=== PATIENT | male | born 1975 | race Hispanic/Latino ===

== ENCOUNTER 2016-06-05 10:00 | Emergency (ER) | payer MEDICAID ==
[2016-06-05 10:01] VITALS: BMI 22.4
[2016-06-05 10:06] VITALS: BP 130/84; PULSE 100; RESP 16; TEMP 97.6
[2016-06-05 10:15] VITALS: O2SAT 98
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
--- NOTE | 2016-06-05 12:54 | RAD ---
PROCEDURE: Right Wrist Radiographs. HISTORY: wrist injury COMPARISON: None. FINDINGS: BONES: Impaction fracture distal radius with angulation. Ulnar styloid fracture. JOINTS: Normal. No dislocation. SOFT TISSUES: Normal. OTHER FINDINGS: None. IMPRESSION: Impaction fracture distal radius with angulation. Ulnar styloid fracture.
--- NOTE | 2016-06-05 12:55 | RAD ---
PROCEDURE: Left Hand Radiographs. HISTORY: injury COMPARISON: None. FINDINGS: BONES: Impaction fracture distal radius with angulation. Ulnar styloid fracture. JOINTS: Normal. No osteoarthritic changes. SOFT TISSUES: Normal. OTHER FINDINGS: None. IMPRESSION: Impaction fracture distal radius with angulation. Ulnar styloid fracture.
--- NOTE | 2016-06-05 12:55 | RAD ---
HISTORY: injury COMPARISON: No prior FINDINGS: BONES: Impaction fracture distal radius with angulation. Ulnar styloid fracture. JOINTS: Normal. No osteoarthritis. SOFT TISSUE: Normal. OTHER FINDINGS: None . IMPRESSION: Impaction fracture distal radius with angulation. Ulnar styloid fracture.
--- NOTE | 2016-06-05 14:45 | CT ---
PROCEDURE: HISTORY: EVALUATE WRIST FX COMPARISON: TECHNIQUE: FINDINGS: There is a comminuted impaction fracture of the distal radius with both obliques, transverse and vertical fracture lines extending to distal radial articular surface with narrowing of the radio scaphoid joint. There is an ulnar styloid fracture. The carpus is in good anatomic alignment. There is diffuse soft tissue swelling and carpal synovitis. IMPRESSION: Impaction fracture of the distal radius with extensive comminution as discussed above.
== END 2016-06-05 14:34 | disposition home or self-care (01) ==
LOC: H.ER 10:00
DX: S69.92XA Unspecified injury of left wrist, hand and finger(s), initial encounter (principal); W19.XXXA Unspecified fall, initial encounter; Y92.89 Other specified places as the place of occurrence of the external cause; F41.9 Anxiety disorder, unspecified

== ENCOUNTER 2016-06-07 05:48 | Day surgery (SDC) | payer MEDICAID ==
[2016-06-07 05:48] VITALS: BMI 22.4
[2016-06-07] MEDS ORDERED: Albuterol-Ipratrop 3 mg / 0.5 (3 ml) UD INH STA (06:20)
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
[2016-06-07 06:56] LABS: BASO # 0.1 K/uL (0.0-0.2); BASO % 0.7 % (0.0-2.0); EOS # 0.2 K/uL (0.0-0.7); HEMATOCRIT 44.2 % (35.0-51.0); LYMPH # 1.6 K/uL (1.0-4.3); LYMPH % 19.9 % (20.0-40.0); MEAN CELL VOLUME 94.3 fl (80.0-94.0); MEAN CORPUSCULAR HEMOGLOBIN 32.4 pg (27.0-31.0); MEAN CORPUSCULAR HGB CONC 34.4 g/dL (33.0-37.0); MEAN PLATELET VOLUME 7.7 fl (7.2-11.7); MONO # 0.8 K/uL (0.0-0.8); MONO % 10.5 % (0.0-10.0); NEUT # 5.2 K/uL (1.8-7.0); NEUT % 65.9 % (50.0-75.0); NRBC % 0.1 % (0.0-0.0); RED CELL DISTRIBUTION WIDTH 13.3 % (11.5-14.5); WHITE BLOOD COUNT 7.9 K/uL (4.8-10.8)
--- NOTE | 2016-06-07 07:02 | ED PDOC ---
- ECG O2 Sat by Pulse Oximetry: 96 Medical Decision Making Medical Decision Makin:00 Patient signed out to me by Dr. Voss. Pending labs and re-eval Disposition - Clinical Impression Clinical Impression: Arm fracture, left - Disposition Condition: STABLE
[2016-06-07 07:05] LABS: BLOOD UREA NITROGEN 10 mg/dl (9-20); CALCIUM 9.6 mg/dL (8.4-10.2); CARBON DIOXIDE 28 mmol/L (22-30); CHLORIDE 106 mmol/L (98-107); GFR AFRICAN-AMERICAN > 60; GLUCOSE,RANDOM 91 mg/dL (75-110); POTASSIUM 4.1 MMOL/L (3.6-5.0); SODIUM 146 mmol/l (132-148)
[2016-06-07 08:14] LABS: PARTIAL THROMBOPLASTIN TIME 23.9 SECONDS (23.3-32.5)
--- NOTE | 2016-06-07 09:49 | RAD ---
HISTORY: r/o PNA COMPARISON: No prior. TECHNIQUE: Chest PA and lateral FINDINGS: LUNGS: No active pulmonary disease. PLEURA: No significant pleural effusion identified. No pneumothorax apparent. CARDIOVASCULAR: Normal. OSSEOUS STRUCTURES: No significant abnormalities. VISUALIZED UPPER ABDOMEN: Normal. OTHER FINDINGS: None. IMPRESSION: No active disease.
[2016-06-07] MEDS ORDERED: Lidocaine Hydrochloride 5 ML INJ ONE (10:21)
[2016-06-07] MEDS ORDERED: Propofol 10 mg/ml Inj (20 ML) ONE (10:21)
[2016-06-07] MEDS ORDERED: Midazolam 2 MG/2 ML VIAL ONE (10:21)
--- NOTE | 2016-06-07 10:23 | CARD ---
APPROVED REPORT EKG Measurement Heart [id number] <Conclusion> Normal sinus rhythm with sinus arrhythmia Normal ECG
[2016-06-07] MEDS ORDERED: Lactated Ringer's 1,000 ML IV ONE (10:50)
[2016-06-07] MEDS ORDERED: Lidocaine 2% Jelly (5 ml) TOP ONE (11:25)
[2016-06-07] MEDS ORDERED: HYDROmorphone 0.5 mg/0.5 ml ISec IVP PRN ×2 (12:50→13:32)
[2016-06-07] MEDS ORDERED: HYDROmorphone 0.5 mg/0.5 ml ISec ONE ×2 (12:51→13:25)
[2016-06-07] MEDS ORDERED: Bupivacaine HCl 0.25% PF (30 ml) Inj ONE (12:55)
[2016-06-07] MEDS ORDERED: Bupivacaine HCl 0.5% PF (30 ml) Inj ONE (12:56)
[2016-06-07] MEDS ORDERED: Lactated Ringer's 1,000 ML IV SCH (13:32)
[2016-06-07] MEDS ORDERED: Oxycodone/Acetaminophen 5/325 mg Tab PO PRN (13:41)
--- NOTE | 2016-06-07 13:41 | PCM.ANESB4 ---
Infraclavicular Block - Femoral Nerve Block Date of Procedure: 06/07/16 Anesthesiologist: Dr. Alonzo Pre-Procedure Diagnosis: S/P ORIF Left Wrist fracture Post-Procedure Diagnosis: S/P ORIF Left Wrist fracture Procedure Performed: Brachial Plexus at the Infraclavicular area Left - Procedure Infraclavicular Block: The patient was in recovery room with standard monitors. The procedure was explained to the patient that it is for the post-operative pain management. Consent was obtained after a thorough discussion with the patient regarding the benefits and possible complications of local anesthetic block of the brachial plexus at the infraclavicular area. Time-out was held with the nurse to confirm the correct side and the appropriate block. While with oxygen by nasal cannula and administering some dilaudid to lessen his pain, patient's head was gently rotated away from the operative left side and the area medial to the coracoid process and inferior to the clavicle was carefully palpated. The ultrasound transducer was then applied to the skin in the transverse plane and the brachial plexus was visualized surrounding the axillary artery and deep to the pectoralis major and minor muscles. After thorough identification, this area was prepped with Chloraprep solution and 1 % Lidocaine was injected subcutaneously for topical anesthesia. At this point, a #21 gauge Stimuplex 4-inch needle was inserted cephalad to the ultrasound transducer and inferior to the clavicle in-plane towards the posterior aspect of the axillary artery. Needle advancement was performed carefully under ultrasound visualization. After repeated negative aspiration, 5cc of 0.35% bupivacaine was injected and this was followed with 25cc of 0.35% bupivacaine. Under ultrasound guidance the local anesthetics were observed surrounding the cords of the brachial plexus. The needle was removed intact and sterile dressing was applied. The patient had stable vital signs, was conscious and in no apparent distress. The patient tolerated the infraclavicular block of the brachial plexus well with stable vital signs.
--- NOTE | 2016-06-07 14:05 | PCM.SURG1 ---
Surgeon's Initial Post Op Note - Surgeon's Notes Surgeon: Dr. Daron Sherman Electronics Tech: Beatriz Campbell PA-C Type of Anesthesia: General Endo Anesthesia Administered By: Dr. Alonzo Pre-Operative Diagnosis: Displaced Left Intraarticular 4 Part Distal Radius Fracture Operative Findings: see operative note Post-Operative Diagnosis: same Operation Performed: Open Reduction Internal Fixation of Left Displaced Intraarticular 4 Part Distal Radius Fracture with a Synthes Volar Locking Plate Specimen/Specimens Removed: none Estimated Blood Loss: EBL {In ML}: 10 Drains Used: No Drains Post-Op Condition: Good Date of Surgery/Procedure: 06/07/16 Time of Surgery/Procedure: 11:00
[2016-06-07 14:28] VITALS: RESP 18
--- NOTE | 2016-06-07 14:30 | RAD ---
PROCEDURE: Left Wrist Radiographs. Three views of the left wrist performed through a fiberglass cast which obscures fine soft tissue and bone detail. . HISTORY: post op left ORIF of dustal radius fx COMPARISON: Comparison wrist 06/05/2016 FINDINGS: BONES: Status post ORIF comminuted intra-articular fracture distal left radius. A sideplate has been attached to the volar aspect of the distal radius attached by multiple threaded screws. Satisfactory alignment. JOINTS: Normal. No dislocation. SOFT TISSUES: Normal. OTHER FINDINGS: None. IMPRESSION: Limited study due to overlying fiberglass cast. Status post ORIF comminuted intra-articular fracture distal left radius. A sideplate has been attached to the volar aspect of the distal radius attached by multiple threaded screws. Satisfactory alignment.
[2016-06-07 14:35] VITALS: TEMP 98
--- NOTE | 2016-06-07 15:04 | OP ---
PROCEDURE DATE: 06/07/2016 SURGEON: Daron Sherman MD. PROJECT ENGINEERING DIRECTOR: LENA Villaseñor. PREOPERATIVE DIAGNOSIS: Displaced left intraarticular distal radius fracture, greater than 3 part. POSTOPERATIVE DIAGNOSIS: Displaced left intraarticular distal radius fracture, greater than 3 part. PROCEDURE: Open reduction internal fixation, left distal radius fracture using a Synthes volar locking plate. ANESTHESIA: Regional and supplemental intravenous sedation. DRAINS: None. OPERATIVE FINDINGS: displaced unstable 4 part fracture with intraarticular extension. SPECIMENS: None. DISPOSITION: Stable to recovery room. INDICATIONS: This is a 41-year-old right hand dominant male who presents to the Emergency Room on today's visit. The patient had sustained an injury to his wrist and was diagnosed with a displaced distal radius fracture. I evaluated the patient and, due to the instability of the fracture, I recommended surgery. The patient was taken to the operating room the same day for open reduction and internal fixation procedure. Risks of surgery were explained. The risks include, but not limited to, bleeding, infection; tendon, nerve or vessel injury; instability, chronic pain, potential need for additional surgery in the future. The patient understood the above risks and elected to proceed. Informed consent was obtained. DESCRIPTION OF PROCEDURE: The patient was taken to the operating room and placed supine on the operating room table. After adequate regional anesthesia and prophylactic antibiotics were given, a well-padded nonsterile tourniquet was placed on the patient's left upper extremity. The left upper extremity was then prepped and draped in standard surgical fashion. The proposed incision was marked out with a sterile marking pen. This was a longitudinal incision over the FCR tendon and then goes radially as it crosses the proximal wrist flexion crease. An Esmarch bandage was used to exsanguinate the limb and the tourniquet was inflated to 250 mmHg. The Esmarch bandage was removed. The incision was made through the skin only. All superficial veins were cauterized. Careful dissection was carried down to the flexor carpi radialis sheath which was incised on the radial most border. The FCR tendon was then retracted ulnarly and the floor of the FCR sheath was then incised as well. The flexor pollicis longus was retracted ulnarly and any small branches of the radial artery were cauterized. The pronator quadratus was reflected in an L- shaped fashion. The base of the pronator quadratus flap was on the ulnar side. The fracture was then visualized. With a combination of curette, rongeur and all early callus was removed. A bone tamp was entered into the fracture site and the articular surface was elevated and this impacted with light hammer blows. The volar fracture fragment was then reduced by a combination of longitudinal traction and digital pressure. A Synthes volar plate was placed on the volar aspect of the distal radius and was temporarily transfixed with Hermelinda wires. Image intensification revealed an anatomic reduction of the distal radius and excellent placement of the plate. In a sequential fashion, the proximal 3.5 mm screws were placed in the plate in a standard AO fashion. Next, the Hermelinda wires were removed. Distal locking pegs were then placed in a standard fashion using partially threaded screws. Rigid fixation was obtained. The image intensification revealed excellent reduction of the articular surface. The wrist and forearm were taken through a range of motion and full rotation was obtainable and the distal radioulnar joint was stable. The wound was irrigated with a copious amount of normal saline. The pronator quadratus was repaired back to its insertion on the radius with 4-0 Vicryl suture. The skin was then closed with 4-0 nylon interrupted sutures. Sterile dressing was placed consisting of fluffs, 4 x 4 and a volar wrist splint. The patient tolerated the procedure well and was brought to the recovery room awake, alert and in excellent condition. Beatriz Mcgee is a certified physician exceptional children teacher assistant who helped me throughout the entirety of the case. Her assistance was needed for proper patient positioning, protecting of neurovascular bundles, retraction and reduction of the fracture. Daron Sherman M.D. cc: [id number] TT: 06/07/2016 15:03:30 isidro BURRIS
[2016-06-07 17:35] VITALS: BP 129/79; PULSE 80; O2SAT 99
== END 2016-06-07 16:00 | disposition home or self-care (01) ==
LOC: H.ER 05:48 → H.SDS 07:02 → H.ERHOLD 07:11 → H.SDS 16:00
PROVIDERS: ATTEND Orthopaedic Surgery
DX: S52.572A Other intraarticular fracture of lower end of left radius, initial encounter for closed fracture (principal); X58.XXXA Exposure to other specified factors, initial encounter

== ENCOUNTER 2016-06-29 17:20 | Inpatient (IN) | payer MEDICAID ==
[2016-06-29 17:20] VITALS: BMI 22.4
--- NOTE | 2016-06-29 19:45 | ED PDOC ---
HPI: Psych/Substance Abuse Time Seen by Provider: 06/29/16 18:19 Chief Complaint (Nursing): Psychiatric Evaluation Chief Complaint (Provider): Suicidal Ideation History Per: Patient History/Exam Limitations: no limitations Onset/Duration Of Symptoms: Days (ongoing for 1 week) Current Symptoms Are (Timing): Still Present Modifying Factor(s): Alcohol, Marijuana Severity: Moderate Associated Symptoms: Depression, Suicidal Thoughts, Suicidal Plan Additional Complaint(s): Faraz Fiore is a 41 year old male, with a past medical history of depression and anxiety, who presents to the emergency department for the evaluation of suicidal ideation, that has been ongoing for 1 week. Patient states that he has been noncompliant with his Wellbutrin for the past 2 days and is currently feeling depressed with thoughts of cutting his wrists and neck. Patient has not made an attempt at suicide, but currently has a plan to do so. Modifying factors are inclusive of alcohol and smoking marijuana, which the patient admits to abusing. PMD: Dameon Healy Past Medical History Reviewed: Historical Data, Nursing Documentation, Vital Signs Vital Signs: Last Vital Signs Temp 98.8 F 06/29/16 17:28 Pulse 118 H 06/29/16 17:28 Resp 20 06/29/16 17:28 BP 126/76 06/29/16 17:28 Pulse Ox 100 06/29/16 17:28 - Medical History PMH: Anxiety, Depression, Hepatitis (C), Chronic Kidney Disease, Seizures Denies: Diabetes, HIV, HTN, Sexually Transmitted Disease - Surgical History Surgical History: No Surg Hx - Family History Family History: States: No Known Family Hx - Social History Current smoker - smoking cessation education provided: Yes Alcohol: Occasional Drugs: Cannabis - Immunization History Hx Tetanus Toxoid Vaccination: Yes Hx Influenza Vaccination: No Hx Pneumococcal Vaccination: No - Home Medications Home Medications: Ambulatory Orders Medication Instructions Recorded buPROPion XL [Wellbutrin XL] 300 mg PO DAILY 06/07/16 oxyCODONE/Acetaminophen [Percocet 1 mg PO Q4 PRN 06/07/16 5/325 mg Tab] Gabapentin [Neurontin] mg PO 06/29/16 Home Med 300 mg PO DAILY 06/29/16 traZODone [trazODONE HYDROCHLORIDE] 50 mg PO HS 06/29/16 - Allergies Allergies/Adverse Reactions: Allergies Allergy/AdvReac Type Severity Reaction Status Date / Time No Known Allergies Allergy Verified 05/22/16 10:52 Review of Systems ROS Statement: Except As Marked, All Systems Reviewed And Found Negative Psych: Positive for: Depression, Suicidal ideation Physical Exam - Reviewed Nursing Documentation Reviewed: Yes Vital Signs Reviewed: Yes - Physical Exam Appears: Positive for: Non-toxic, No Acute Distress Head Exam: Positive for: ATRAUMATIC, NORMAL INSPECTION, NORMOCEPHALIC Skin: Positive for: Normal Color, Warm, Dry Eye Exam: Positive for: EOMI, Normal appearance, PERRL Neck: Positive for: Normal, Painless ROM, Supple Cardiovascular/Chest: Positive for: Regular Rate, Rhythm. Negative for: Murmur Respiratory: Positive for: Normal Breath Sounds. Negative for: Respiratory Distress Gastrointestinal/Abdominal: Positive for: Normal Exam, Soft. Negative for: Tenderness Extremity: Positive for: Other (L upper extremity wrist splint placement). Negative for: Normal ROM (limited range of motion due to splint application) Neurologic/Psych: Positive for: Alert, Oriented, Mood/Affect (depressed affect and appearance) - Laboratory Results Result Diagrams: 06/29/16 20:00 06/29/16 20:00 - ECG O2 Sat by Pulse Oximetry: 100 (RA) Pulse Ox Interpretation: Normal Medical Decision Making Medical Decision Makin:19 Initial Impression: Depression, medication noncompliance Initial plan: * Alcohol Serum * Complete Blood Count * Basic Metabolic Panel * Urine Drug Screen * Urinalysis * Acetaminophen * Salicylate * ED Observation * Crisis Evaluation 19:32 Patient will be placed within ED Observation secondary to time-extensive ED workup. Pending crisis evaluation. See Observation note for further updates. 21:02 Patient is to be admitted to psych under Patricia Carvajal MD. Scribe Attestation: Documented by Tin Bradley, acting as a scribe for Shanika, Dixon, MD. Provider Scribe Attestation: All medical record entries made by the Scribe were at my direction and personally dictated by me. I have reviewed the chart and agree that the record accurately reflects my personal performance of the history, physical exam, medical decision making, and the department course for this patient. I have also personally directed, reviewed, and agree with the discharge instructions and disposition. ED OBSERVATION Discharge: Yes Date of observation admission: 06/29/16 Time of observation admission: 19:32 - Observation admission statement Patient is being placed in observation because:: Patient will be placed within ED Observation secondary to time-extensive ED workup. - Goals of Observation Goals of observation are:: Pending crisis evaluation. Disposition - Clinical Impression Clinical Impression: Depression - Disposition Disposition Time: 21:02 Condition: STABLE
[2016-06-29 20:11] LABS: BASO % 0.6 % (0.0-2.0); EOS # 0.2 K/uL (0.0-0.7); LYMPH # 1.7 K/uL (1.0-4.3); LYMPH % 23.4 % (20.0-40.0); MEAN CELL VOLUME 94.9 fl (80.0-94.0); MEAN CORPUSCULAR HEMOGLOBIN 32.2 pg (27.0-31.0); MEAN PLATELET VOLUME 8.5 fl (7.2-11.7); MONO # 0.4 K/uL (0.0-0.8); MONO % 5.7 % (0.0-10.0); NEUT % 67.3 % (50.0-75.0); WHITE BLOOD COUNT 7.4 K/uL (4.8-10.8)
[2016-06-29 20:37] LABS: ALCOHOL SERUM 86 mg/dl (0-10); BLOOD UREA NITROGEN 13 mg/dl (9-20); CALCIUM 9.3 mg/dL (8.4-10.2); CARBON DIOXIDE 23 mmol/L (22-30); CHLORIDE 107 mmol/L (98-107); GFR AFRICAN-AMERICAN > 60; GLUCOSE,RANDOM 95 mg/dL (75-110); SODIUM 145 mmol/l (132-148)
[2016-06-29 21:07] LABS: RBC URINE 1 /hpf (0-3); URINE BILIRUBIN NEGATIVE (NEGATIVE); URINE BLOOD NEGATIVE (NEGATIVE); URINE COLOR YELLOW (YELLOW); URINE GLUCOSE (UA) NEG (Normal); URINE KETONE NEGATIVE (NEGATIVE); URINE LEUKOCYTE ESTERASE NEG Leu/uL (Negative); URINE PROTEIN NEGATIVE (NEGATIVE); URINE UROBILINOGEN 0.2-1.0 mg/dL (0.2-1.0); WBC URINE < 1 /hpf (0-5)
[2016-06-29] MEDS ORDERED: DiphenhydrAMINE 50 mg/ml Inj IM PRN (23:06)
[2016-06-29] MEDS ORDERED: Alum-Mag Hydrox-Simethicone Susp (30 mL) PO PRN (23:06)
[2016-06-29] MEDS ORDERED: Magnesium Hydroxide Susp 30 ml UD PO PRN (23:06)
[2016-06-30 01:00] VITALS: O2SAT 100
--- NOTE | 2016-06-30 07:06 | CP.PCM.CON ---
History of Present Illness - History of Present Illness History of Present Illness: Attendinb: Dr Montanez PCP: Dameon Healy MD Reason for Consult: Management of Medical matters Chief complaint: Suicide ideation HPI: 41 years old male with hx of multiple psychiatric admissions, Heroin and Cocaine abuse, Depression, Discharged from detox at [facility] 03/2016, non compliant with medication who comes to the ED with one week of Suicidal Ideation with plan to use a razer to cut his throat. He has been consuming Alcohol,Heroin and Cocaine for the prior week. PMH: Hepatitis C; Anxiety and Depression Disorder;Seizure; PSH:Left wrist surgery for Tib-Fib Fracture 06/07/16 SH: IV Heroin and Cocaine abuse; Alcohol Abuse; heavy Smoking FH:Unknown family history Allergies: NKDA Review of Systems - Constitutional Constitutional: absent: Anorexia, Chills, Fatigue, Fever, Weakness - EENT Eyes: absent: Blind Spots, Blurred Vision, Floaters, Photophobia, Requires Corrective Lenses Ears: absent: Tinnitus, Abnormal Hearing Nose/Mouth/Throat: absent: Epistaxis, Nasal Congestion, Nasal Discharge, Sinus Pain, Sinus Pressure - Cardiovascular Cardiovascular: absent: Dyspnea, Edema, Leg Edema - Respiratory Respiratory: absent: Cough, Dyspnea, Wheezing - Gastrointestinal Gastrointestinal: absent: Constipation, Diarrhea, Nausea, Vomiting - Genitourinary Genitourinary: absent: Dysuria, Flank Pain, Hematuria, Urinary Incontinence - Musculoskeletal Musculoskeletal: absent: Arthralgias, Back Pain, Muscle Weakness, Myalgias - Neurological Neurological: absent: Confusion, Dizziness, Focal Weakness, Headaches, Weakness - Psychiatric Psychiatric: Anxiety, Depression - Endocrine Endocrine: absent: Fatigue, Flushing, Palpitations, Polydipsia, Polyphagia, Polyuria - Hematologic/Lymphatic Hematologic: absent: Easy Bleeding, Easy Bruising Past Patient History - Infectious Disease Hx of Infectious Diseases: None - Past Medical History & Family History Past Medical History?: Yes - Past Social History Alcohol: Occasional Drugs: Cannabis - CARDIAC Hx Hypertension: No - PULMONARY Hx Respiratory Disorders: No - NEUROLOGICAL Hx Seizures: Yes - HEENT Hx HEENT Problems: No - RENAL Hx Chronic Kidney Disease: Yes - ENDOCRINE/METABOLIC Hx Endocrine Disorders: No - HEMATOLOGICAL/ONCOLOGICAL Hx Human Immunodeficiency Virus (HIV): No - INTEGUMENTARY Hx Dermatological Problems: No - MUSCULOSKELETAL/RHEUMATOLOGICAL Hx Musculoskeletal Disorders: No Other/Comment: fx left wrist, surgery 06/07/16, sutures removed, site appears clean, no s/s of infection. site closed. no drainage. brace on wrist - GASTROINTESTINAL Hx Gastrointestinal Disorders: No - GENITOURINARY/GYNECOLOGICAL Hx Sexually Transmitted Disorders: No - PSYCHIATRIC Hx Anxiety: Yes Hx Depression: Yes - SURGICAL HISTORY Hx Surgeries: Yes Other/Comment: left wrist surg. 06/07/16 - ANESTHESIA Hx Anesthesia: Yes Hx Anesthesia Reactions: No Meds Allergies/Adverse Reactions: Allergies Allergy/AdvReac Type Severity Reaction Status Date / Time No Known Allergies Allergy Verified 05/22/16 10:52 - Medications Medications: Current Medications Acetaminophen (Tylenol 325mg Tab) 650 mg PO Q4 PRN PRN Reason: Pain, moderate (4-7) Al Hydrox/Mg Hydrox/Simethicone (Maalox Plus 30 Ml) 30 ml PO Q4 PRN PRN Reason: Dyspepsia Diphenhydramine HCl (Benadryl) 50 mg IM Q6 PRN PRN Reason: Extrapyramidal S/S Unable PO Diphenhydramine HCl (Benadryl) 50 mg PO Q6 PRN PRN Reason: Extrapyramidal Symptoms Diphenhydramine HCl (Benadryl) 50 mg PO HS PRN PRN Reason: Sleep Folic Acid (Folic Acid) 1 mg PO DAILY ALESSIA Haloperidol (Haldol) 5 mg PO Q4 PRN PRN Reason: Agitation Haloperidol Lactate (Haldol) 5 mg IM Q4 PRN PRN Reason: Agitation, Unable to Take PO Lorazepam (Ativan) 2 mg IM Q4 PRN PRN Reason: Anxiety/Agitation,Unable PO Lorazepam (Ativan) 2 mg PO Q4 PRN PRN Reason: Anxiety/Agitation Lorazepam (Ativan) 1 mg PO TID ALESSIA Magnesium Hydroxide (Milk Of Magnesia) 30 ml PO HS PRN PRN Reason: Constipation Multivitamins/Minerals (Therapeutic-M Tab) 1 tab PO DAILY ALESSIA Nicotine (Nicoderm Cq) 1 patch TD DAILY ALESSIA Thiamine HCl (Vitamin B1 Tab) 100 mg PO DAILY ALESSIA Physical Exam - Head Exam Head Exam: ATRAUMATIC, NORMAL INSPECTION, NORMOCEPHALIC - Eye Exam Eye Exam: EOMI, Normal appearance Pupil Exam: NORMAL ACCOMODATION, PERRL - ENT Exam ENT Exam: Mucous Membranes Moist, Normal Exam, Normal External Ear Exam, Normal Oropharynx - Neck Exam Neck exam: Positive for: Full Rom, Normal Inspection. Negative for: Lymphadenopathy, Tenderness - Respiratory Exam Respiratory Exam: Clear to Auscultation Bilateral. absent: Rales, Rhonchi, Wheezes - Cardiovascular Exam Cardiovascular Exam: REGULAR RHYTHM, RRR, +S1, +S2 - GI/Abdominal Exam GI & Abdominal Exam: Normal Bowel Sounds, Soft. absent: Mass, Organomegaly, Tenderness - Rectal Exam Rectal Exam: Deferred - Extremities Exam Extremities exam: Positive for: full ROM, normal inspection. Negative for: calf tenderness, pedal edema - Back Exam Back exam: NORMAL INSPECTION. absent: CVA tenderness (L), CVA tenderness (R) - Neurological Exam Neurological exam: Alert, CN II-XII Intact, Normal Gait, Oriented x3, Reflexes Normal - Psychiatric Exam Psychiatric exam: Normal Affect, Normal Mood - Skin Skin Exam: Dry, Intact, Normal Color, Warm Results - Vital Signs Recent Vital Signs: Last Vital Signs Temp 97.2 F L 06/29/16 23: Pulse 83 06/29/16 23: Resp 18 06/29/16 23:17 BP 129/56 L 06/29/16 23:17 Pulse Ox 100 06/30/16 01:00 - Labs Result Diagrams: 06/29/16 20:00 06/29/16 20:00 Assessment & Plan - Assessment and Plan (Free Text) Assessment: #. Suicide Ideation #. Depression #. Polysubstance Abuse Plan: 41 years old male with hx of multiple psychiatric admissions, Heroin and Cocaine abuse, Depression, Discharged from detox at [facility] 03/2016, non compliant with medication who comes to the ED with one week of Suicidal Ideation with plan to use a razer to cut his throat. He has been consuming Alcohol,Heroin and Cocaine for the prior week. #. Suicide Ideation #. Depression - Psychiatric management #. Polysubstance Abuse - Ativan/Clonidine #. Alcohol Abuse - Alcohol withdrawal precaution - Ativan/Folic Acid/Thiamine #. Nicotine Addiction - Nicotine patch #. Code Status Full - Date & Time Date: 06/30/16 Time: 07:06
[2016-06-30 07:30] LABS: T4 7.1 ug/dl (5.5-11.0)
[2016-06-30 07:44] LABS: THYROID STIMULATING HORMONE 1.41 mIU/ML (0.46-4.68)
[2016-06-30] MEDS: Multivitamin With Minerals Tab PO SCH (09:52)
[2016-07-01] MEDS: Multivitamin With Minerals Tab PO SCH (10:02)
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
--- NOTE | 2016-07-01 17:23 | RAD ---
HISTORY: screening COMPARISON: Comparison chest dated 06/07/2016 FINDINGS: LUNGS: No active pulmonary disease. PLEURA: No significant pleural effusion identified, no pneumothorax apparent. CARDIOVASCULAR: Normal. OSSEOUS STRUCTURES: No significant abnormalities. VISUALIZED UPPER ABDOMEN: Normal. OTHER FINDINGS: None. IMPRESSION: No active disease.
[2016-07-01 17:30] VITALS: RESP 18
[2016-07-02] MEDS: Multivitamin With Minerals Tab PO SCH (09:29)
[2016-07-02 17:04] VITALS: BP 133/77; PULSE 69
[2016-07-02 18:35] VITALS: TEMP 96.5
== END 2016-07-02 17:30 | disposition home or self-care (01) | DRG 744 ==
LOC: H.ER 17:20 → H.EROBSV 19:32 → OBSVTOIN 21:05 → H.ERHOLD 21:09 → H.PSYCH 22:53
PROVIDERS: ADMIT Psychiatry & Neurology Psychiatry; ATTEND Psychiatry & Neurology Psychiatry
PROC: GZHZZZZ Group Psychotherapy (ICD-10-PCS; principal; 2016-06-29)
DX: F19.20 Other psychoactive substance dependence, uncomplicated (principal); N18.9 Chronic kidney disease, unspecified; F10.10 Alcohol abuse, uncomplicated; R45.851 Suicidal ideations; B19.20 Unspecified viral hepatitis C without hepatic coma; F32.9 Major depressive disorder, single episode, unspecified; F17.210 Nicotine dependence, cigarettes, uncomplicated; Z91.14 Patient's other noncompliance with medication regimen; F39 Unspecified mood [affective] disorder; F41.8 Other specified anxiety disorders; Y90.4 Blood alcohol level of 80-99 mg/100 ml